=== PATIENT | male | born 1950 | race Caucasian/White ===

== ENCOUNTER 2018-06-17 19:21 | Inpatient (IN) | payer MEDICARE ==
[~2018-06-17] VITALS: Ht 180.3 cm; Wt 76.5 kg
[~2018-06-17 19:21] MED LIST: AMLO-150 PO; AMLO10TA8 PO; ASPI-496 PO; ASPI-515 PO; METO-93 PO; METO25TA35 PO; METR500T PO
[2018-06-17 20:39] LABS: BASOPHILS # (AUTO) 0.06 x10^3/uL (0-0.1); BASOPHILS % (AUTO) 1 % (0-1); EOSINOPHILS # (AUTO) 0.03 x10^3/uL (0-0.4); EOSINOPHILS % (AUTO) 1 % (1-7); LYMPHOCYTES # (AUTO) 1.24 x10^3/uL (1-3.4); LYMPHOCYTES % (AUTO) 25 % (22-44); MD NO; MEAN CORPUSCULAR HEMOGLOBIN 31.1 pg (27.5-34.5); MEAN CORPUSCULAR HGB CONC 34.1 g/dL (33.2-36.2); MEAN CORPUSCULAR VOLUME 91.4 fL (81-97); MEAN PLATELET VOLUME 6.4 fL (7.4-10.4); MONOCYTES # (AUTO) 0.84 x10^3/uL (0.2-0.8); MONOCYTES % (AUTO) 17 % (2-9); NEUTROPHILS # (AUTO) 2.81 x10^3/uL (1.8-6.8); NEUTROPHILS % (AUTO) 57 % (42-75); PLATELET COUNT 327 x10^3/uL (130-400); RED BLOOD COUNT 3.83 x10^6/uL (4.38-5.82)
[2018-06-17 20:45] LABS: INTERNATIONAL NORMALIZED RATIO 1.03 (0.93-1.1); PROTHROMBIN TIME 10.9 Seconds (9.6-11.5)
[2018-06-17 20:47] LABS: ALANINE AMINOTRANSFERASE 26 U/L (12-78); ALBUMIN 2.9 g/dL (3.4-5.0); ANION GAP 6 mmol/L (5-15); CALCIUM 8.2 mg/dL (8.5-10.1); CHLORIDE 101 mmol/L (98-107)
[2018-06-17 20:49] LABS: ALKALINE PHOSPHATASE 205 U/L (45-117); BILIRUBIN,TOTAL 0.4 mg/dL (0.2-1.0); TOTAL PROTEIN 7.2 g/dL (6.4-8.2)
--- NOTE | 2018-06-17 21:09 | NUR ---
Assumed care of patient. C/O bilat lower ABD pain and dark, black BM x 1. Denies bloody stool and denies N/V. Placed on NIBP and pulse ox. Will continue to monitor.
--- NOTE | 2018-06-17 21:32 | NUR ---
Resting in [facility]. No needs.
[2018-06-17] MEDS ORDERED: PANTOPRAZOLE 40 MG IV IVP ONE (22:00)
[2018-06-17] MEDS ORDERED: SODIUM CHLORIDE FLUSH 10ML SYR IVF ONE (22:00)
[2018-06-17] MEDS ORDERED: PANTOPRAZOLE 40 MG IV ONE (22:02)
[2018-06-17] MEDS ORDERED: HYDR-3342 PO (22:05)
[2018-06-17] MEDS ORDERED: BISACODYL 10 MG SUPP PR PRN (22:30)
[2018-06-17] MEDS ORDERED: ONDANSETRON 2MG/ML, 2ML IVPush PRN (22:30)
[2018-06-18] VITALS (7 sets, daily range): BP systolic 152–187; BP diastolic 83–102
[2018-06-18] MEDS: SODIUM CHLORIDE FLUSH 10ML SYR IVF SCH ×3 (00:30→19:56)
[2018-06-18 05:16] LABS: MEAN CORPUSCULAR HGB CONC 33.8 g/dL (33.2-36.2); MEAN CORPUSCULAR VOLUME 91.8 fL (81-97); MEAN PLATELET VOLUME 6.5 fL (7.4-10.4); PLATELET COUNT 293 x10^3/uL (130-400); RED BLOOD COUNT 3.94 x10^6/uL (4.38-5.82); RED CELL DISTRIBUTION WIDTH 15.9 % (9.4-14.8)
[2018-06-18 05:23] LABS: ALBUMIN 2.7 g/dL (3.4-5.0); ANION GAP 6 mmol/L (5-15); CALCIUM 8.1 mg/dL (8.5-10.1); CHLORIDE 104 mmol/L (98-107)
[2018-06-18 05:26] LABS: ALANINE AMINOTRANSFERASE 24 U/L (12-78); ALKALINE PHOSPHATASE 203 U/L (45-117); BILIRUBIN,TOTAL 0.7 mg/dL (0.2-1.0); CREATININE 0.73 mg/dL (0.7-1.3); TOTAL PROTEIN 6.7 g/dL (6.4-8.2)
[2018-06-18] MEDS: METOPROLOL TARTRATE 25 MG TABLET PO SCH ×2 (05:41→17:48)
[2018-06-18 06:02] LABS: MD YES
[2018-06-18 06:05] LABS: EOS#(MANUAL) 0.04 x10^3/uL (0.0-0.4); EOS% (MANUAL) 1 % (1-7); LYMPH#(MANUAL) 0.98 x10^3/uL (1-3.4); LYMPHS% (MANUAL) 28 % (22-44); MONOS% (MANUAL) 20 % (2-9); SEG#(MANUAL) 1.79 x10^3/uL (1.8-6.8); SEGS% (MANUAL) 51 % (42-75)
[2018-06-18 06:06] LABS: <PLATELET ESTIMATE> ADEQUATE; <PLT MORPHOLOGY> NORMAL PLT MORPH; <RBC MORPHOLOGY> NORMAL
[2018-06-18] MEDS: PANTOPRAZOLE 40 MG IV IVPush SCH ×2 (09:16→22:00)
[2018-06-18] MEDS: SODIUM CHLORIDE 0.9% 1,000 ML IV SCH ×2 (09:22→17:48)
[2018-06-18] MEDS ORDERED: PROPOFOL 10 MG/ML, 20ML ONE (10:50)
[2018-06-18] MEDS ORDERED: ONDANSETRON ODT 8 MG PO PRN (11:00)
[2018-06-18] MEDS ORDERED: MORPHINE SULFATE 4 MG/ML, 1ML IVPush PRN (11:00)
[2018-06-18] MEDS ORDERED: DIPHENHYDRAMINE 50 MG/ML, 1ML IVPush PRN (11:00)
[2018-06-18] MEDS ORDERED: MIDAZOLAM 1 MG/ML, 2ML IV PRN (11:00)
[2018-06-18] MEDS ORDERED: METOPROLOL 1 MG/ML, 5ML IV PRN (11:00)
[2018-06-18] MEDS ORDERED: ONDANSETRON 2MG/ML, 2ML IV PRN (11:00)
[2018-06-18] MEDS ORDERED: FENTANYL PF 100 MCG/2ML IV PRN (11:00)
[2018-06-18] MEDS ORDERED: hydrALAzine 20 MG/ML, 1ML IV PRN (11:00)
[2018-06-18] MEDS ORDERED: EPHEDRINE 50 MG/ML, 1ML IVPush PRN (11:00)
[2018-06-18] MEDS: ACETAMINOPHEN 325 MG TABLET PO PRN (12:13)
[2018-06-19] VITALS (9 sets, daily range): BP systolic 154–196; BP diastolic 88–106
[2018-06-19] MEDS: SODIUM CHLORIDE 0.9% 1,000 ML IV SCH (01:57)
[2018-06-19] MEDS: METOPROLOL TARTRATE 25 MG TABLET PO SCH ×2 (06:11→17:27)
[2018-06-19 06:43] LABS: BASOPHILS # (AUTO) 0.02 x10^3/uL (0-0.1); BASOPHILS % (AUTO) 1 % (0-1); EOSINOPHILS # (AUTO) 0.05 x10^3/uL (0-0.4); EOSINOPHILS % (AUTO) 2 % (1-7); LYMPHOCYTES # (AUTO) 0.85 x10^3/uL (1-3.4); LYMPHOCYTES % (AUTO) 25 % (22-44); MD NO; MEAN CORPUSCULAR HGB CONC 32.2 g/dL (33.2-36.2); MEAN CORPUSCULAR VOLUME 93.2 fL (81-97); MEAN PLATELET VOLUME 6.9 fL (7.4-10.4); MONOCYTES # (AUTO) 0.59 x10^3/uL (0.2-0.8); MONOCYTES % (AUTO) 17 % (2-9); NEUTROPHILS % (AUTO) 56 % (42-75); PLATELET COUNT 277 x10^3/uL (130-400); RED BLOOD COUNT 4.07 x10^6/uL (4.38-5.82); RED CELL DISTRIBUTION WIDTH 15.9 % (9.4-14.8)
[2018-06-19 06:51] LABS: ALBUMIN 2.6 g/dL (3.4-5.0); ANION GAP 7 mmol/L (5-15); CHLORIDE 107 mmol/L (98-107)
[2018-06-19] MEDS ORDERED: hydrALAzine 20 MG/ML, 1ML IV ONE (08:30)
[2018-06-19] MEDS: SODIUM CHLORIDE FLUSH 10ML SYR IVF SCH ×2 (10:25→21:29)
[2018-06-19] MEDS: PANTOPRAZOLE 40 MG IV IVPush SCH ×2 (10:25→21:29)
[2018-06-19] MEDS: hydrALAzine 20 MG/ML, 1ML IV PRN (14:27)
[2018-06-19] MEDS: ACETAMINOPHEN 325 MG TABLET PO PRN (17:27)
[2018-06-20] MEDS: ACETAMINOPHEN 325 MG TABLET PO PRN ×2 (01:12→09:54)
[2018-06-20 01:13] VITALS: BP 182/92
[2018-06-20] MEDS: hydrALAzine 20 MG/ML, 1ML IV PRN ×2 (01:28→01:43)
[2018-06-20 02:22] VITALS: BP 157/86
[2018-06-20 04:33] LABS: BASOPHILS # (AUTO) 0.08 x10^3/uL (0-0.1); BASOPHILS % (AUTO) 2 % (0-1); EOSINOPHILS # (AUTO) 0.07 x10^3/uL (0-0.4); EOSINOPHILS % (AUTO) 2 % (1-7); LYMPHOCYTES # (AUTO) 1.19 x10^3/uL (1-3.4); LYMPHOCYTES % (AUTO) 29 % (22-44); MD NO; MEAN CORPUSCULAR HEMOGLOBIN 30.5 pg (27.5-34.5); MEAN CORPUSCULAR HGB CONC 33.1 g/dL (33.2-36.2); MEAN CORPUSCULAR VOLUME 92.1 fL (81-97); MEAN PLATELET VOLUME 6.6 fL (7.4-10.4); MONOCYTES # (AUTO) 0.74 x10^3/uL (0.2-0.8); MONOCYTES % (AUTO) 18 % (2-9); NEUTROPHILS # (AUTO) 2.02 x10^3/uL (1.8-6.8); NEUTROPHILS % (AUTO) 49 % (42-75); PLATELET COUNT 312 x10^3/uL (130-400); RED BLOOD COUNT 4.19 x10^6/uL (4.38-5.82); RED CELL DISTRIBUTION WIDTH 15.7 % (9.4-14.8)
[2018-06-20 04:41] LABS: CHLORIDE 105 mmol/L (98-107)
[2018-06-20 04:48] LABS: ALANINE AMINOTRANSFERASE 19 U/L (12-78); ALBUMIN 2.9 g/dL (3.4-5.0); ALKALINE PHOSPHATASE 180 U/L (45-117); ANION GAP 11 mmol/L (5-15); BILIRUBIN,TOTAL 0.6 mg/dL (0.2-1.0); CALCIUM 8.3 mg/dL (8.5-10.1)
[2018-06-20] MEDS: METOPROLOL TARTRATE 25 MG TABLET PO SCH (05:47)
[2018-06-20 07:16] VITALS: BP 168/91
[2018-06-20] MEDS: SODIUM CHLORIDE FLUSH 10ML SYR IVF SCH (07:56)
[2018-06-20] MEDS: PANTOPRAZOLE 40 MG IV IVPush SCH (07:56)
[2018-06-20] MEDS ORDERED: PANT40TA3 PO (10:46)
== END 2018-06-20 11:42 | disposition home or self-care (01) | DRG 378 ==
LOC: ED 22:21 → EDIP 22:26 → ED 22:27 → 3NE 23:15
PROVIDERS: ADMIT Hospitalist; ATTEND Hospitalist
PROC: 0DJ08ZZ Inspection of Upper Intestinal Tract, Via Natural or Artificial Opening Endoscopic (ICD-10-PCS; principal; 2018-06-18 10:30)
DX: K25.4 Chronic or unspecified gastric ulcer with hemorrhage (principal); D62 Acute posthemorrhagic anemia; E44.0 Moderate protein-calorie malnutrition; E87.1 Hypo-osmolality and hyponatremia; F10.10 Alcohol abuse, uncomplicated; F12.90 Cannabis use, unspecified, uncomplicated; I10 Essential (primary) hypertension; I16.0 Hypertensive urgency; I25.10 Atherosclerotic heart disease of native coronary artery without angina pectoris; I25.2 Old myocardial infarction; K44.9 Diaphragmatic hernia without obstruction or gangrene; Z79.82 Long term (current) use of aspirin; Z82.49 Family history of ischemic heart disease and other diseases of the circulatory system; Z95.5 Presence of coronary angioplasty implant and graft; Z87.891 Personal history of nicotine dependence; Z68.23 Body mass index [BMI] 23.0-23.9, adult; K29.61 Other gastritis with bleeding
CPT/HCPCS: 36415; 80048; 80053; 82040; 85025; 85610; 85730; 93005; 96374; 99285; G0378; J2704; C9113; J0360; J7030

== ENCOUNTER 2018-08-04 04:30 | Observation (INO) | payer MEDICARE ==
[~2018-08-04] VITALS: Ht 180.3 cm; Wt 76.3 kg
[~2018-08-04 04:30] MED LIST changes: +HYDR-3342 PO; +PANT40TA3 PO
--- NOTE | 2018-08-04 04:48 | NUR ---
PT DEVELOPED SOME CHEST PAIN AROUND 0200 WHICH HAS SINCE RESOLVED. HAS HX UNEXPLAINED TACHYCARDIA. HR 104. ALSO HAS HAD COUGH FOR PAST WEEK ALONG WITH DIARRHEA AND LOSS OF APPETITE
[2018-08-04] MEDS ORDERED: NITROGLYCERIN SINGLE TAB 0.4 MG SL PRN (05:00)
[2018-08-04] MEDS ORDERED: SODIUM CHLORIDE FLUSH 10ML SYR IVF ONE (05:00)
[2018-08-04] MEDS ORDERED: ASPIRIN 81 MG TABLET EC ONE (05:06)
[2018-08-04] MEDS ORDERED: LORazepam 2 MG/ML, 1ML ONE (05:07)
--- NOTE | 2018-08-04 05:25 | NUR ---
BP LEFT ARM 163/114, BP RIGHT ARM 148/103
[2018-08-04] MEDS ORDERED: LORazepam 2 MG/ML, 1ML IVPush ONE (05:30)
[2018-08-04] MEDS ORDERED: ASPIRIN 81 MG TABLET CHEW PO ONE (05:30)
[2018-08-04 05:35] LABS: ALANINE AMINOTRANSFERASE 29 U/L (12-78); ALBUMIN 3.6 g/dL (3.4-5.0); ANION GAP 9 mmol/L (5-15); CALCIUM 8.8 mg/dL (8.5-10.1); CHLORIDE 106 mmol/L (98-107); CREATININE 1.02 mg/dL (0.7-1.3)
[2018-08-04 05:35] LABS: MEAN CORPUSCULAR HEMOGLOBIN 30.4 pg (27.5-34.5); MEAN CORPUSCULAR HGB CONC 33.5 g/dL (33.2-36.2); MEAN CORPUSCULAR VOLUME 90.8 fL (81-97); MEAN PLATELET VOLUME 6.9 fL (7.4-10.4); PLATELET COUNT 326 x10^3/uL (130-400); RED BLOOD COUNT 4.48 x10^6/uL (4.38-5.82)
[2018-08-04 05:40] LABS: ALKALINE PHOSPHATASE 212 U/L (45-117); BILIRUBIN,TOTAL 0.9 mg/dL (0.2-1.0); TOTAL PROTEIN 7.8 g/dL (6.4-8.2); TROPONIN I < 0.015 ng/mL (0.000-0.045)
[2018-08-04 06:08] LABS: MD YES
[2018-08-04] MEDS ORDERED: OMNIPAQUE 350 MG/ML, 100ML BOTTLE ONE (06:10)
[2018-08-04 06:11] LABS: <PLATELET ESTIMATE> ADEQUATE; <PLT MORPHOLOGY> NORMAL PLT MORPH; <RBC MORPHOLOGY> NORMAL; LYMPH#(MANUAL) 1.33 x10^3/uL (1-3.4); LYMPHS% (MANUAL) 34 % (22-44); MONOS#(MANUAL) 0.39 x10^3/uL (0.3-2.7); MONOS% (MANUAL) 10 % (2-9); SEG#(MANUAL) 2.18 x10^3/uL (1.8-6.8); SEGS% (MANUAL) 56 % (42-75)
--- NOTE | 2018-08-04 06:52 | NUR ---
PT RESTING PLAYING ON PHONE. VSS. UPDATED ON POC
--- NOTE | 2018-08-04 06:55 | NUR ---
Report from Dinah MARIA. Pt resting in bed, VARGASN, provided with warm blanket per request. Pt denies other needs at this time.
--- NOTE | 2018-08-04 08:14 | NUR ---
Pt resting in bed looking at his phone, denies needs.
--- NOTE | 2018-08-04 08:48 | NUR ---
Report called to Magali MARIA on card tele. Floor ready for pt transport.
[2018-08-04] MEDS ORDERED: LABETALOL 5MG/ML, 20ML IVPush PRN (09:00)
[2018-08-04] MEDS ORDERED: ONDANSETRON ODT 4 MG PO PRN (09:00)
[2018-08-04] MEDS ORDERED: ONDANSETRON 2MG/ML, 2ML IVPush PRN (09:00)
[2018-08-04 09:21] VITALS: BP 151/95
[2018-08-04] MEDS ORDERED: LORazepam INTENSOL 2 MG/ML PO PRN (09:30)
[2018-08-04] MEDS: METOPROLOL TARTRATE 25 MG TABLET PO SCH ×2 (09:45→17:27)
[2018-08-04 10:25] LABS: FREE T4 (FREE THYROXINE) 1.18 ng/dL (0.76-1.46); TROPONIN I < 0.015 ng/mL (0.000-0.045)
[2018-08-04] MEDS: ACETAMINOPHEN 325 MG TABLET PO PRN (12:56)
[2018-08-04 13:36] VITALS: BP 131/88
[2018-08-04 14:21] LABS: TROPONIN I < 0.015 ng/mL (0.000-0.045)
[2018-08-04] MEDS ORDERED: PANTOPRAZOLE 40 MG IV IVPush SCH (15:00)
[2018-08-04] MEDS: SUCRALFATE 1 GM/10 ML UDC PO SCH ×2 (16:11→20:04)
[2018-08-04 20:00] VITALS: BP 151/96
[2018-08-04] MEDS: PANTOPROZOLE 40MG TABLET PO SCH (20:04)
[2018-08-05 01:18] VITALS: BP 146/97
[2018-08-05 05:44] LABS: MEAN CORPUSCULAR HEMOGLOBIN 31.3 pg (27.5-34.5); MEAN CORPUSCULAR HGB CONC 34.5 g/dL (33.2-36.2); MEAN CORPUSCULAR VOLUME 90.9 fL (81-97); PLATELET COUNT 300 x10^3/uL (130-400); RED BLOOD COUNT 4.33 x10^6/uL (4.38-5.82); RED CELL DISTRIBUTION WIDTH 20.9 % (9.4-14.8)
[2018-08-05 05:51] LABS: CHLORIDE 106 mmol/L (98-107)
[2018-08-05 06:10] LABS: ALANINE AMINOTRANSFERASE 30 U/L (12-78); ALBUMIN 3.3 g/dL (3.4-5.0); ALKALINE PHOSPHATASE 201 U/L (45-117); ANION GAP 7 mmol/L (5-15); BILIRUBIN,TOTAL 0.8 mg/dL (0.2-1.0); CALCIUM 8.6 mg/dL (8.5-10.1); CREATININE 0.94 mg/dL (0.7-1.3); TOTAL PROTEIN 7.2 g/dL (6.4-8.2)
[2018-08-05] MEDS: ACETAMINOPHEN 325 MG TABLET PO PRN (06:15)
[2018-08-05] MEDS: METOPROLOL TARTRATE 25 MG TABLET PO SCH (06:16)
[2018-08-05 08:00] VITALS: BP 133/84
[2018-08-05] MEDS: SUCRALFATE 1 GM/10 ML UDC PO SCH ×2 (08:03→11:49)
[2018-08-05] MEDS: PANTOPROZOLE 40MG TABLET PO SCH (08:03)
[2018-08-05 08:33] LABS: MD YES
[2018-08-05 08:34] LABS: BAND#(MANUAL) 0.07 x10^3/uL; BANDS%(MANUAL) 2 % (0-7); BASOS#(MANUAL) 0.03 x10^3/uL (0-0.1); BASOS% (MANUAL) 1 % (0-1); LYMPH#(MANUAL) 1.39 x10^3/uL (1-3.4); LYMPHS% (MANUAL) 41 % (22-44); MONOS#(MANUAL) 0.54 x10^3/uL (0.3-2.7); MONOS% (MANUAL) 16 % (2-9); NRBC % (MANUAL) 1 % (0-1); SEG#(MANUAL) 1.22 x10^3/uL (1.8-6.8); SEGS% (MANUAL) 36 % (42-75)
[2018-08-05 08:35] LABS: <PLATELET ESTIMATE> ADEQUATE; <PLT MORPHOLOGY> NORMAL PLT MORPH; <RBC MORPHOLOGY> NORMAL; EOS#(MANUAL) 0.14 x10^3/uL (0.0-0.4); EOS% (MANUAL) 4 % (1-7)
[2018-08-05] MEDS ORDERED: REGADENOSON 0.4 MG/5 ML SYRINGE ONE (08:55)
[2018-08-05 13:36] VITALS: BP 157/98
[2018-08-05] MEDS ORDERED: SUCR1ORA5 PO (14:12)
[2018-08-05] MEDS ORDERED: PANT40TA5 PO (14:12)
== END 2018-08-05 16:13 | disposition home or self-care (01) ==
LOC: ED 05:22 → INTOOBSV 08:09 → EDIP 08:09 → 5SO 09:02 → ED 09:33 → 5SO 09:41
PROVIDERS: ADMIT Hospitalist; ATTEND Hospitalist
DX: R07.9 Chest pain, unspecified (principal); I10 Essential (primary) hypertension; I25.10 Atherosclerotic heart disease of native coronary artery without angina pectoris; F12.90 Cannabis use, unspecified, uncomplicated; I25.2 Old myocardial infarction; K44.9 Diaphragmatic hernia without obstruction or gangrene; K92.2 Gastrointestinal hemorrhage, unspecified; R79.1 Abnormal coagulation profile; Z87.11 Personal history of peptic ulcer disease; Z95.5 Presence of coronary angioplasty implant and graft; Z87.891 Personal history of nicotine dependence
CPT/HCPCS: 36415; 71045; 71275; 78452; 80053; 82306; 83735; 83880; 84100; 84439; 84443; 84484; 85025; 85379; 93005; 93017; 96374; 99284; A9502; C8929; C9898; G0378; J2060; J2785; Q9957; Q9967